=== PATIENT | male | born 1965 | race Caucasian/White ===

== ENCOUNTER 2022-03-25 08:49 | Observation (INO) | payer BC ==
[~2022-03-25] VITALS: Ht 170.2 cm; Wt 103.0 kg
[~2022-03-25 08:49] MED LIST: KEFLEX500 MG PO
[2022-03-25 10:00] LABS: HEMOGLOBIN 14.8 gm/dl (14.0-17.5); RED BLOOD COUNT 4.77 M/UL (4.20-5.50); WHITE BLOOD COUNT 8.3 K/UL (4.5-11.0)
[2022-03-25 10:21] LABS: BUN/CREATININE RATIO 11 (0-10)
[2022-03-26] MEDS ORDERED: LISINOPRIL10 MG PO (11:38)
[2022-03-26] MEDS ORDERED: BUSPIRONE HCL10 MG PO (11:39)
[2022-03-26] MEDS ORDERED: CRESTOR10 MG PO (11:40)
[2022-03-26] MEDS ORDERED: GLIPIZIDE5 MG PO (11:40)
[2022-03-26] MEDS ORDERED: OZEMPIC0.25 MG/0. SQ (11:42)
[2022-03-26] MEDS ORDERED: ONE-A-DAY MEN'1 EAC2 PO (11:44)
[2022-03-26] MEDS ORDERED: TURMERIC500 M2 PO (11:44)
[2022-03-26] MEDS ORDERED: HYDROCODON-ACE1 EAC2 PO (11:59)
[2022-03-26] MEDS ORDERED: COLACE100 MG PO (11:59)
== END 2022-03-26 13:39 | disposition home or self-care (01) ==
LOC: ER1 08:49 → M/S 19:19 → CDU 20:15 → M/S 20:16
PROVIDERS: Family Medicine; ADMIT Surgery
DX: K35.80 Unspecified acute appendicitis (principal); I10 Essential (primary) hypertension; E78.5 Hyperlipidemia, unspecified; F41.9 Anxiety disorder, unspecified
CPT/HCPCS: 71046; 80053; 81001; 82550; 82553; 83605; 83690; 84484; 85025; 93005; 96374; 96375; 99285; G0378; J1100; J1885; J2001; J2250; J2405; J2543; J2704; J2710; J3010; J3480; Q9967